=== PATIENT | female | born 1990 | race Caucasian/White ===

== ENCOUNTER → 2018-07-11 13:56 | Outpatient (CLI) | payer SELFPAY ==
[2018-07-11 17:15] LABS: Chlamydia Trachomatis by PCR Negative (Negative); Neisserai gonorrhoeae by PCR Negative (Negative); Probe Check PASS; Sample Adequacy Control PASS; Specimen Processing Control PASS
[2018-07-14 12:20] LABS: HPV Reflexed? NOT INDICATED
== END ==
PROVIDERS: Visit Provider Obstetrics & Gynecology
DX: Z12.4 Encounter for screening for malignant neoplasm of cervix (principal); Z11.3 Encounter for screening for infections with a predominantly sexual mode of transmission
CPT/HCPCS: 87491; 87591; 88175; G0145

== ENCOUNTER → 2018-07-26 11:23 | Outpatient (CLI) | payer SELFPAY ==
[2018-07-26 13:46] LABS: Color, Urine Yellow (Yellow); Glucose, Dipstick Normal (Normal); Ketone-Dipstick Negative (Negative); Leukocyte Esterase-Dipstick 25 /ul (Negative); Nitrite-Dipstick Negative (Negative); Occult Blood-Urine Negative /ul (Negative); Protein-Dipstick Negative (Negative); Specific Gravity, Urine 1.025 (1.002-1.030); Urine Bilirubin Dipstick Negative (Negative); Urine Clarity Cloudy (Clear); Urine Urobilinogen Normal (Normal)
[2018-07-26 13:47] LABS: Absolute Lymphocyte Count 1.71 X10^3/ul (0.83-4.51); Absolute Neutrophil Count 4.8 X10^3/uL (2.0-7.7); Basophil# 0.03 X10^3/uL; Basophil% 0.4 % (0-1); Eosinophil# 0.07 X10^3/uL; Hematocrit 38.8 % (37-47); Hemoglobin 13.3 g/dl (12.0-15.0); Lymphocyte # 1.71 X10^3/ul (4.0); Lymphocyte % 24.1 % (19-41); Mean Corp Hgb Conc 34.3 g/gl (32-36); Mean Corpuscular Volume 78.9 fL (81-99); Mean Platelet Vol. 9.1 fl (6.2-12.0); Monocyte# 0.49 X10^3/uL; Monocyte% 6.9 % (0-10); Neutrophil # 4.78 X10^3/uL (2.7-7.7); Neutrophil % 67.3 % (47-70); Platelet Count 366 K/mm3 (150-450); RBC Distribution Width CV 12.9 % (11.6-14.6); RBC Distribution Width SD 36.5 fl (35.1-43.9); Red Blood Count 4.92 M/mm3 (4.2-5.4); White Blood Count 7.1 K/mm3 (4.4-11.0)
[2018-07-26 13:49] LABS: POSITIVE COUNT NO; POSITIVE DIFFERENTIAL NO; POSITIVE MORPHOLOGY NO
[2018-07-26 14:06] LABS: Thyroid Stim Hormone (TSH) 0.97 uIU/mL (0.358-3.74)
[2018-07-26 15:34] LABS: HIV - WCH Non-Reactive (Nonreactive); Rubella IgG 5.7 IU/mL
[2018-07-27 09:54] LABS: HEPATITIS B SURFACE AG Negative (Negative); Hep C Antibodies <0.1 s/co ratio (0.0-0.9)
[2018-07-28 01:43] LABS: Prenatal RPR NONREACTIVE (NONREACTIVE)
== END ==
PROVIDERS: Visit Provider Obstetrics & Gynecology
DX: Z34.81 Encounter for supervision of other normal pregnancy, first trimester (principal)
CPT/HCPCS: 36415; 81002; 84443; 85025; 86703; 86762; 86803; 87340

== ENCOUNTER → 2018-11-16 08:48 | Outpatient (CLI) | payer SELFPAY ==
[2018-11-16 10:47] LABS: Hemoglobin 11.6 g/dL (12.0-15.0); Mean Corp Hgb Conc 33.1 g/dL (32-36); Mean Corpuscular Hgb 28.2 pg (27.0-32.0); Mean Corpuscular Volume 85.2 fL (81-99); Mean Platelet Vol. 9.4 fl (6.2-12.0); Platelet Count 282 K/mm3 (150-450); RBC Distribution Width CV 12.6 % (11.6-14.6); RBC Distribution Width SD 38.5 fl (35.1-43.9); Red Blood Count 4.11 M/mm3 (4.2-5.4); White Blood Count 10.8 K/mm3 (4.4-11.0)
[2018-11-16 10:55] LABS: Glucose Challenge Gest 1H 50g 88 mg/dL (70-140)
== END ==
PROVIDERS: Visit Provider Obstetrics & Gynecology
DX: Z34.83 Encounter for supervision of other normal pregnancy, third trimester (principal)
CPT/HCPCS: 36415; 82950; 85027

== ENCOUNTER 2019-01-28 23:24 | Inpatient (IN) | payer SELFPAY ==
--- NOTE | 2019-01-22 07:54 | PCM.HPOB.BLA ---
History and Physical Date of Admission: 01/29/19 OB HISTORY AND PHYSICAL EXAMINATION History of this : 28 yo female Ab2 with EDC 02/05/2019 by Ultrasound, presents to Labor and Delivery for planned repeat C/S and tubal ligation. 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 1.) Plans CORD BLOOD BANKING 2,) Sterilization request 3.) Rubella EQUIVOCAL 4.) Headaches Tylenol not fully effective -- Fioricet RX given. 5.) Prior C section deliveries Plans repeat C section. 6.) H/O ectopic (second ) and unilateral salpingectomy performed. 7.) ---Hemophiliac PAST HISTORY: Breast/Ovarian/Colon Cancers - Denies Infections - Chicken pox Illnesses - none Accidents - None History of Abnormal PAPS - Never Hospitalizations - surgery and Childbirth SURGICAL HISTORY: 1. Appendectomy, 2002 2. 02/21/2011 L/S L SALINGECTOMY Estela Grant M.D. MENSTRUAL HISTORY: LMP Known?- DefiniteAmount/Duration - 3-5 DAYS, Regularity - Regular, Frequency - monthly days, LMP - 05/01/18, Age Onset Menarche - 12 PAST PREGNANCIES: Total Pregnancies - 5; Full Term Pregnancies - 2; Premature - 0; Abortions, Induced - 0; Abortions, Spontaneous - 1; Ectopics - 1; Multiple Births - 0; Living Children - 2 SOCIAL HISTORY: Alcohol Use - None Smoking - denies smoking Diet - balanced Diet Lifestyle - high stress lifestyle Exercise - none Seat Belt Use - always Illicit Drug Use - None Sexual Activity - Spouse-Sig Other Name - Jorge L Children Name(s) - Yannick Control - Allergies: NKDA Medications: During - irtgnsexbb-daukeluggpsly-wuwafjfj 50 mg-325 mg-40 mg tablet; Vitamin tablet Review of Systems: Non-contributory PHYSICAL EXAMINATION General Appearance: 28 yo female in no acute distress Vital Signs: AF, VSS Lungs: regular rate and rhythm Breasts: deferred Abdomen: gravid Pelvis: Cervix: deferred Presentation: cephalic Size: AGA Movement: present Heart: present Impression /Plan: Intrauterine . Prior C section deliveries, here for repeat C section at 39 wk EGA. Planning tubal ligation also. Admit for repeat C/S and partial salpingectomy of remaining fallopian tube. 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 Amniocentesis this : THIS BABY not affected.
[2019-01-29] VITALS (23 sets, daily range): BP systolic 103–135; BP diastolic 46–88; PULSE 56–104; RESP 16–18; TEMP 35.6–36.8; O2SAT 96–100; BMI 31.8
[2019-01-29] MEDS: Lactated Ringers 1,000 ML 999 ML IV (00:02)
[2019-01-29 00:20] LABS: Absolute Lymphocyte Count 2.77 X10^3/uL (0.83-4.51); Absolute Neutrophil Count 7.9 X10^3/uL (2.0-7.7); Basophil# 0.06 X10^3/uL; Basophil% 0.5 % (0-1); Eosinophil# 0.17 X10^3/uL; Eosinophils% 1.4 % (0-5); Hematocrit 35.1 % (37-47); Lymphocyte # 2.77 X10^3/ul (4.0); Lymphocyte % 23.3 % (19-41); Mean Corp Hgb Conc 34.2 g/dL (32-36); Mean Corpuscular Hgb 28.4 pg (27.0-32.0); Mean Corpuscular Volume 83.2 fL (81-99); Mean Platelet Vol. 9.4 fl (6.2-12.0); Monocyte# 0.89 X10^3/uL; Monocyte% 7.5 % (0-10); NRBC Flagged by Analyzer 0 % (0-5); Neutrophil # 7.86 X10^3/uL (2.7-7.7); Neutrophil % 66.2 % (47-70); Platelet Count 312 K/mm3 (150-450); RBC Distribution Width CV 12.9 % (11.6-14.6); RBC Distribution Width SD 38.7 fl (35.1-43.9); Red Blood Count 4.22 M/mm3 (4.2-5.4); White Blood Count 11.9 K/mm3 (4.4-11.0)
[2019-01-29] MEDS: Sodium Citrate/Citric Acid 30 ML UDC PO (00:21)
[2019-01-29] MEDS: Cefazolin 2 GM in 0.9% Normal Saline 100 ML IV (00:23)
--- NOTE | 2019-01-29 00:27 | DCINST_ITS ---
Discharge Diet: No Restrictions Discharge Activity: May not drive while taking narcotic pain medications., May Shower, May Take a Tub Bath Return to work on:: 03/12/19 May resume sexual activity in: 4-6 weeks Lifting Restrictions: 20 pounds Additional Activity Instructions:: Nothing in the vagina for 4-6 weeks. You may return to work/school in 6 weeks. Change Dressing in (Days):: 14 Remove Dressing in (days):: 14 Cleanse incision/area with: Soap & Water, Keep Dressing Clean & Dry Additional Instructions: If you experience any of the following, contact your healthcare provider. * Bleeding that soaks a pad every hour for 2 hours * Fever 100.4 or higher * Unrelieved incision or abdominal pain * Swelling, redness, discharge or bleeding from your incision * Problems urinating (including inability to urinate or burning while urinating). * Visual changes * Severe headache * Flu-like symptoms * Pain or redness in one of both of your breasts * Pain, warmth, tenderness or swelling in your legs, especially the calf area * Frequent nausea and vomiting * Symptoms of depression or anxiety If you experience any of the following, call 911 or go to the nearest Emergency Room. * Chest pain * Problems breathing * Seizure activity * Partial or complete paralysis of a body part, slurred speech, weakness or drooping of the face, or a sudden inability to walk or hold your balance Allergies/Adverse Reactions: Allergies No Known Allergies Allergy (Verified 01/29/19 00:03) Medications to take at Discharge Docusate Sodium [Colace] 100 mg PO BID #30 cap 01/29/19 Naproxen [Naprosyn] 250 - 500 mg PO TID PRN PRN #30 tab 01/29/19 Oxycodone [Oxyir] 5 mg PO Q6H PRN PRN 3 Days #15 tablet 01/29/19 Tablet 1 tab PO DAILY 01/29/19 The following prescriptions were given: Docusate Sodium [Colace] 100 mg PO BID #30 cap Transmission Status: Pending to [facility] Naproxen [Naprosyn] 250 - 500 mg PO TID PRN PRN #30 tab PRN Reason: Mild-Mod Pain (1-06/23) Transmission Status: Pending to [facility] Oxycodone [Oxyir] 5 mg PO Q6H PRN PRN 3 Days #15 tablet PRN Reason: Mod-Severe Pain (4-11/23) Transmission Status: Sent to [facility] Follow-Up: Call to make an appointment with your doctor for an incision check in 1-2 weeks. You will also need a 6 week post- follow up appointment. Test results from this visit will be discussed in further detail at your follow- up appointment, if applicable. Please Follow Up With: Ernestina Lama, [facility] - [phone] When: Call to make an appointment for an incision check in 2 weeks. Primary Care Physician: Geovanny Tay DO [Primary Care Provider] - Proposed Discharge Date: 01/31/19
--- NOTE | 2019-01-29 00:31 | PCM.OPRPT ---
Delivery Classification: FRANKY Final GARETH: 02/05/19 Final GARETH Source: US <20 weeks Gestational age: 39 Weeks and 0 Days forestry farm laborer: Ruchi Lambert Type of Anesthesia:: Spinal - Fernie Fernández CRNA Date of Procedure: 01/29/19 Pre-Operative Diagnosis: 39 wk EGA . labor. Prior C/S planned repeat C section, Sterilization request. Post-Operative Diagnosis: Same Indications: 39 wk EGA . labor. Prior C/S planned repeat C section, Sterilization request. Indications for : Repeat Elective , Desires elective sterilization Description of Procedure: Findings: At amniotomy, clear fluid was noted. Andersen viable female in vertex presentation. Apgars 9/9, Baby weight: 6# 15 oz There was a normal appearing uterus, fallopian tubes and ovaries bilaterally. There were minimal filmy adhesions between the bladder and lower uterine segment. PATH: Cord blood was collected for cord blood banking, per the instructions on the kit supplied by patient Narrative account: After the risks, benefits and alternatives of the procedure were reviewed with the patient, informed consent was obtained. The patient was taken to the Operating room with an IV running, and placed in a seated position on the operating table for placement of the spinal. Once the spinal had been administered, she was briefly frog-legged for Yousif catheter placement, and then repositioned to dorsal supine position with leftward displacement of the uterus, and prepped and draped in the usual sterile fashion. Once the spinal was deemed adequate, a Pfannenstiel skin incision was created using the knife (through the prior skin incision scar). The incision was carried down to the rectus fascia using the knife. The fascia was nicked in the midline. The fascial incision was extended bilaterally using curved Florence scissors. The superior aspect of the fascial incision was grasped with Ap clamps and tented up and the underlying rectus abdominal muscles were dissected free. In a similar manner, the inferior aspect of the facial incision was grasped with Ap clamps tented up and the underlying rectus abdominal muscles were dissected free. The rectus abdominis muscles were in the midline and the peritoneum was identified and entered by blunt dissection high in the incision. The peritoneum was stretched laterally and a bladder blade was inserted. A bladder flap was created along the lower uterine segment with Metzenbaum scissors . The uterine incision was then created using Metzenbaum scissors. The operators fingertips were used to extend the uterine incision by blunt dissection in a caudad- cephalad orientation . Clear fluid was noted at amniotomy. The vertex was then delivered atraumatically through the incision. The shoulders delivered easily. The OP and nares were bulb suctioned on the abdomen. The cord clamped x two and cut. And the was handed off to the nurse awaiting delivery after briefly showing him to his parents. The baby had a spontaneous, vigorous cry. The cord blood collection kit was then brought to the surgical field and in a sterile manner the cord blood was collected and set aside to be shipped for cord blood banking as per directions on the kit. The placenta was then delivered. The uterus was exteriorized and cleared of clots and debris. The uterine incision was repaired with 1 Vicryl in a running locked fashion. A second imbricating layer was then placed, using 1 Monocryl in running nonlocked fashion. Bovie cautery was used to treat any bleeding areas . The left fallopian tube was surgically absent (midportion, and the fimbriated end). Attention was turned to the right partial salpingectomy. The right fallopian tube was tented up in the relatively avascular midportion and a window was created in the mesosalpinx. The proximal and distal ends of the fallopian tube at the window were free tied with 2-0 catgut. A knuckle of the right fallopian tube was then tented up and a third free tie of 2-0 catgut was used to ligate the fallopian tube inferior to the other ligatures. A segment of the right fallopian tube was then excised as set aside for later pathology. The stumps were Bovie cauterized. Excellent hemostasis was noted. At this point the uterus was returned to the abdominal cavity. The gutters were cleared of clots and debris and the incision at the uterus was inspected. Horizontal mattress stitches of 1 Vicryl were placed as needed for additional hemostasis. Kameron was applied along the entire incision for continued hemostasis. Excellent hemostasis was noted. The rectus abdominis muscles were reapproximated in the midline with vertical mattress stitches of 1 Vicryl. Excellent hemostasis was noted at the subfascial space Kameron was dusted over this layer as well. The fascia was closed in a running nonlocked fashion with a Stratofix. The Subcutaneous fatty tissue was Bovie cauterized as needed for hemostasis. Kameron was liberally dusted at this layer to prevent seroma formation. This layer was then reapproximated in a two layer closure of running 3-0 Vicryl to eliminate space. The skin edges were closed in a Subcuticular stitch of 4-0 Monocryl. The incision was cleansed. Cavilon, Steristrips, and Mepilex dressing were applied to the skin . The patient was then transferred to the recovery room bed in stable condition after tolerating the procedure well. Sponge, lap, needle and instrument counts correct times two. Medications given preop and intraoperatively included: Ancef 2 gm IV given image consultant to the operating room. The patient also received Pitocin given IV after cord clamp, and Toradol 30 mg IV times one. For a complete listing of medications given preop and intraoperatively, please see the anesthesia record. Amniotic Membrane Rupture Type: Artificial Amniotic Fluid Description: Clear Placenta Disposition: [facility] Specimen(s) sent to pathology: none Drain: Yousif to straight drain Fluids Replaced: LR Cord Entanglement: None Cord Vessel Description: 3 Vessels Esitmated Blood Loss (ml): 600 Gender: Female (1 minute): 9 (5 minute): 9 Delayed cord clamping: No Antibiotic Given: Ancef 2 grams IV x1 Pt instructed on risks of surgery: Bleeding, Anesthesia Risks, Permanency, Failure Rate of 1 to 2% Complications: None - Admit VTE Documentation VTE Present on Admission: No VTE Mechan Device Prophylaxis: SCD's VTE Pharm Prophylaxis ordered?: No
--- NOTE | 2019-01-29 00:52 | FALS_PTH ---
PATIENT: SANDRO KIM LOC: [facility] U#:[id number] AGE/SX: 28/F ROOM: WP004 RE01/28/[address]: Dr. Estela Grant MD : 1990 BED: 1 DIS: 01/30/2019 SPEC #: [id number] RECD: 01/29/19 06:50 STATUS: SUZY RESherly #: [id number] OUSMANE: 01/29/19 00:[address]: Estela Grant DEPT: SURGICAL PATHOLOGY RECD BY: Nat Salvador ENTERED: 01/29/19 10:32 SP TYPE: FALL TUBES OTHR DR: Dr. Geovanny Tay DO Tissues: Fallopian tube Procedures: Surgery Specimen Level II HEADER OPERATION: Salpingectomy PRE-OP DIAGNOSIS: Sterilization TISSUE SUBMITTED: Right fallopian tube MICROSCOPIC DIAGNOSIS Right fallopian tube, salpingectomy: Complete cross section of fallopian tube with no pathologic change. AM:yimi 01/30/19 MICROSCOPIC DESCRIPTION Slides are reviewed. GROSS DESCRIPTION Received in fixative is one container labeled with the patient's name and designated right tube. The specimen consists of a tubular piece of horowitz soft tissue measuring 1 cm in length and 0.7 cm in diameter. The entire specimen is submitted in one cassette. It will be sectioned at the time of embedding. / CHRISTINE:yimi 01/29/19 TC:4 CPT: 92874
[2019-01-29] MEDS: Oxytocin 30 units/NS 500 ml 30 UNITS/500 ML IV.SOLN 167 UNITS IV (01:40)
--- NOTE | 2019-01-29 03:40 | NURSING ---
Rn spoke with patient about being rubella equivocal, pt declines MMR
--- NOTE | 2019-01-29 04:24 | NURSING ---
DAVIS has called cord blood bank and they will soon be en route to get specimen
[2019-01-29] MEDS: Lactated Ringers 1,000 ML 100 ML IV (04:46)
[2019-01-29 06:49] LABS: Pathology Specimen OB SEE PATHOLOGY REPORT
[2019-01-29] MEDS: 0.9% Saline Lock 10 ML Syringe IV ×4 (07:53→20:13)
[2019-01-29] MEDS: Ketorolac 30 MG/ML Syringe IV ×3 (07:53→20:13)
--- NOTE | 2019-01-29 08:36 | PN.OBGYN_ITS ---
Subjective: Pain well controlled, tolerating diet; no flatus yet; nursing well; spouse bedside and supportive Objective: AVSS SCDs, Yousif catheter in place draining clear yellow urine Breasts soft, nipples atraumatic Fundus firm, midline, u/u, lochia small LTCS dressing dry, intact, no drainage noted - Physical Exam Vitals/I&O's: Vital Signs Temp Pulse Resp BP Pulse Ox 97.8 F 76 18 120/70 100 01/29/19 07:48 01/29/19 07:48 01/29/19 07:48 01/29/19 07:48 01/29/19 07:48 Oxygen Delivery Method Room Air Weight: 174 lb Body Mass Index (BMI) 31.8 Intake and Output for Last 24 Hours 01/27/19 01/28/19 01/29/19 23:59 23:59 23:59 Intake Total 1359.5 / 1359.5 Output Total 350 / 350 Balance 1009.5 / 1009.5 General: Alert, Oriented x3, Cooperative, No apparent distress HEENT: PERRLA, EOMI Oral: Moist Mucosa Neck: Supple Lungs: Clear to auscultation, Normal air movement Cardiovascular: Regular rate, Regular Rhythm Abdomen: Bowel Sounds Present, Soft, Non Tender, Non-Distended Extremities: No edema, Capillary Refill Less than 3 Seconds, No Calf Tenderness Skin: No rashes Musculoskeletal: No Tenderness to Palpation of Joints or Extremities Neurological: Cranial nerves II-XII grossly intact, Deep Tendon Reflexes 2+/4 and Symmetrical Psych/Mental Status: Normal Affect, Appropriate, Alert and oriented to time, place, person, mood and affect Laboratory Results 01/29/19 00:02: WBC 11.9 H, RBC 4.22, Hgb 12.0, Hct 35.1 L, MCV 83.2, MCH 28.4, MCHC 34.2, RDW Std Deviation 38.7, RDW Coeff of Ashley 12.9, Plt Count 312, MPV 9.4, Immature Gran % (Auto) 1.100 H, Neut % (Auto) 66.2, Lymph % (Auto) 23.3, Bradford % (Auto) 7.5, Eos % (Auto) 1.4, Baso % (Auto) 0.5, Absolute Neuts (auto) 7.9 H, Absolute Lymphs (auto) 2.77, Nucleated RBC % 0 01/29/19 00:02: Blood Type A POSITIVE, Antibody Screen NEGATIVE Current Medications Acetaminophen (Tylenol) 1,000 mg PO Q8H PRN PRN PRN Reason: Pain Score 1-3/10 Bisacodyl (Dulcolax) 10 mg RECTAL UD PRN PRN Reason: If no BM Hydrocortisone (Hytone) 1 applic TOPICAL TID PRN PRN; Protocol PRN Reason: Discomfort Lactated Ringer's () 1,000 mls @ 100 mls/hr IV .Q10H MERVIN Last Admin: 01/29/19 04:46 Dose: 100 mls/hr Documented by: Naloxone HCl 4 mg/ Dextrose 504 mls @ 0 mls/hr IV .Q0M PRN; Protocol PRN Reason: Respiratory depression Ketorolac Tromethamine (Toradol) 30 mg IV Q6H [facility] Stop: 01/31/19 02:01 Last Admin: 01/29/19 07:53 Dose: 30 mg Documented by: Methylergonovine Maleate (Methergine) 0.2 mg IM X1 PRN PRN Reason: Uterine Atony Naloxone HCl (Narcan) 0.02 mg IV Q1M PRN PRN Reason: RR <10 and pt unresponsive Naproxen (Naprosyn) 250 - 500 mg PO Q8H PRN PRN PRN Reason: Pain Score 1-3/10 Ondansetron HCl (Zofran) 4 mg IV Q4H PRN PRN PRN Reason: Nausea Oxycodone HCl (Oxyir) 5 - 10 mg PO Q4H PRN PRN PRN Reason: Pain Score 4-10/10 Prochlorperazine Edisylate (Compazine Iv) 10 mg IV Q6H PRN PRN PRN Reason: NAUSEA Senna/Docusate Sodium (Senokot-S, Catherine-Colace) 1 - 2 tablet PO DAILY PRN PRN PRN Reason: Constipation Simethicone (Mylicon) 80 mg PO PCHS PRN PRN Reason: Indigestion/stomach pain Sodium Chloride () 5 - 15 ml IV UD PRN PRN Reason: SALINE FLUSH Last Admin: 01/29/19 07:53 Dose: 10 ml Documented by: Zolpidem Tartrate (Ambien (Generic)) 5 mg PO QHS PRN PRN PRN Reason: Insomnia Medical Necessity - Tobacco Use Smoking Status: Never smoker Assessment/Plan Assessment: 28yo G5 now [id number] delivered by RLTCS at 39w0d gestation by L=12w2d gestation DOD, day of procedure, normal involution, normal postpar isaias/postoperative course Rubella equivocal Plan: Continue routine care Dangle at side of bed by 8 hours post op, increase movement/walking progressively Remove Yousif catheter by 12 hours post op Encourage Rubella vaccine
[2019-01-29] MEDS: Senna/Docusate Sodium 1 Tablet PO ×2 (12:40→20:11)
[2019-01-30] VITALS: BP 119/63; PULSE 86; RESP 14; TEMP 36.4; O2SAT 96
[2019-01-30] MEDS: 0.9% Saline Lock 10 ML Syringe IV (01:40)
[2019-01-30] MEDS: Naproxen 250 MG Tablet PO ×2 (01:49→13:49)
--- NOTE | 2019-01-30 01:50 | NURSING ---
Patient's IV site edematous upon flushing with normal saline. Patient reports pain upon flush. Informed patient that another IV could be placed so that patient could receive remaining doses of Toradol. Patient declined a new IV and requested oral medication at this time. IV removed.
[2019-01-30 05:09] VITALS: BP 110/58; PULSE 82; RESP 16; TEMP 36.3; O2SAT 96
[2019-01-30 05:25] LABS: Hemoglobin 10.9 g/dL (12.0-15.0); Mean Corpuscular Hgb 28.2 pg (27.0-32.0); Mean Corpuscular Volume 85.3 fL (81-99); Mean Platelet Vol. 9.5 fl (6.2-12.0); Platelet Count 235 K/mm3 (150-450); RBC Distribution Width CV 13.2 % (11.6-14.6); RBC Distribution Width SD 40.1 fl (35.1-43.9); Red Blood Count 3.87 M/mm3 (4.2-5.4); White Blood Count 13.5 K/mm3 (4.4-11.0)
[2019-01-30 07:45] VITALS: BP 114/76; PULSE 86; RESP 16; TEMP 36.4
--- NOTE | 2019-01-30 07:53 | PCM.PN.OB ---
Subjective: POD#1 Repeat C/S and tubal ligation Stable postop. Asking about activity restrictions. Would like to go home today if possible. Breast feeding well. Pain control adequate. Voiding well and + flatus but no bowel movement. Wearing abdominal binder off and on . - Physical Exam Vitals/I&O's: Vital Signs Temp Pulse Resp BP Pulse Ox 97.3 F L 82 16 110/58 L 96 01/30/19 05:09 01/30/19 05:09 01/30/19 05:09 01/30/19 05:09 01/30/19 05:09 Oxygen Delivery Method Room Air Weight: 78.925 kg Body Mass Index (BMI) 31.8 Intake and Output for Last 24 Hours 01/28/19 01/29/19 01/30/19 23:59 23:59 23:59 Intake Total 2132.83 / 2132.83 Output Total 1300 / 1300 Balance 832.83 / 832.83 General: Alert, Oriented x3, Cooperative, No apparent distress HEENT: Atraumatic, EOMI Neck: Supple Abdomen: Soft - Fundus firm NT at 1-2 cm inferior to umbilicus Abdomen flat. Skin: Incision - Mepilex dressing CDI. Neurological: Cranial nerves II-XII grossly intact Psych/Mental Status: Normal Affect Laboratory Results 01/30/19 05:00: WBC 13.5 H, RBC 3.87 L, Hgb 10.9 L, Hct 33.0 L, MCV 85.3, MCH 28.2, MCHC 33.0, RDW Std Deviation 40.1, RDW Coeff of Ashley 13.2, Plt Count 235, MPV 9.5 Current Medications Acetaminophen (Tylenol) 1,000 mg PO Q8H PRN PRN PRN Reason: Pain Score 1-3/10 Bisacodyl (Dulcolax) 10 mg RECTAL UD PRN PRN Reason: If no BM Hydrocortisone (Hytone) 1 applic TOPICAL TID PRN PRN; Protocol PRN Reason: Discomfort Naloxone HCl 4 mg/ Dextrose 504 mls @ 0 mls/hr IV .Q0M PRN; Protocol PRN Reason: Respiratory depression Ketorolac Tromethamine (Toradol) 30 mg IV Q6H MERVIN Stop: 01/31/19 02:01 Last Admin: 01/30/19 04:16 Dose: Not Given Documented by: Methylergonovine Maleate (Methergine) 0.2 mg IM X1 PRN PRN Reason: Uterine Atony Naloxone HCl (Narcan) 0.02 mg IV Q1M PRN PRN Reason: RR <10 and pt unresponsive Naproxen (Naprosyn) 250 - 500 mg PO Q8H PRN PRN PRN Reason: Pain Score 1-3/10 Last Admin: 01/30/19 01:49 Dose: 500 mg Documented by: Ondansetron HCl (Zofran) 4 mg IV Q4H PRN PRN PRN Reason: Nausea Oxycodone HCl (Oxyir) 5 - 10 mg PO Q4H PRN PRN PRN Reason: Pain Score 4-10/10 Prochlorperazine Edisylate (Compazine Iv) 10 mg IV Q6H PRN PRN PRN Reason: NAUSEA Senna/Docusate Sodium (Senokot-S, Catherine-Colace) 1 - 2 tablet PO DAILY PRN PRN PRN Reason: Constipation Last Admin: 01/29/19 20:11 Dose: 2 tablet Documented by: Simethicone (Mylicon) 80 mg PO PCHS PRN PRN Reason: Indigestion/stomach pain Last Admin: 01/29/19 20:11 Dose: 80 mg Documented by: Sodium Chloride () 5 - 15 ml IV UD PRN PRN Reason: SALINE FLUSH Last Admin: 01/30/19 01:40 Dose: 10 ml Documented by: Zolpidem Tartrate (Ambien (Generic)) 5 mg PO QHS PRN PRN PRN Reason: Insomnia Medical Necessity - Tobacco Use Smoking Status: Never smoker Assessment/Plan POD#1 repeat C/S and tubal ligation Doing well. Would like to go home later in day if possible. Tolerating diet, IV out. + flatus. Inc diet and activity as tolerated. reviewed incision care, activity restrictions. Home today if baby is released. RTO in 1-2 wk for Postop check.
[2019-01-30] MEDS: oxyCODONE 5 MG Tablet PO (08:38)
[2019-01-30] MEDS: Senna/Docusate Sodium 1 Tablet PO (08:39)
[2019-01-30 13:53] VITALS: BP 119/72; PULSE 91; RESP 16; TEMP 36.7
== END 2019-01-30 14:50 | disposition home or self-care (01) | DRG 785 ==
PROVIDERS: Admitting Provider Obstetrics & Gynecology; Family Provider Family Medicine; PCP Family Medicine; Referring Provider Obstetrics & Gynecology; Visit Provider Obstetrics & Gynecology
DX: O34.211 Maternal care for low transverse scar from previous cesarean delivery (principal); Z3A.39 39 weeks gestation of pregnancy; Z37.0 Single live birth; Z14.8 Genetic carrier of other disease; Z30.2 Encounter for sterilization
CPT/HCPCS: 59025; 59050; 85025; 85027; 86850; 86900; 86901; 88302; 99218; 99251; J7120; A4216; G0378; G0463